=== PATIENT | female | born 1985 | race Caucasian/White ===

== ENCOUNTER 2017-11-22 07:32 | Emergency (ER) | payer MEDICAID ==
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
[2017-11-22 07:57] LABS: PLATELET COUNT, AUTOMATED 156 K/uL (150-450)
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
[2017-11-22] MEDS ORDERED: OXYC10TA67 PO (08:34)
[2017-11-22] MEDS ORDERED: MAGN296S6 PO (08:36)
--- NOTE | 2017-11-22 08:58 | RADIOLOGY IMAGING REPORT ---
FACILITY: [facility] [place]IENT NAME: Che Gonsalez : 1985 MR: [id number] V: [id number] EXAM DATE: ORDERING PHYSICIAN: BLESSING JUNIOR TECHNOLOGIST: Location: [facility] - [place] Patient: Che Gonsalez : 1985 Visit/Account:[id number] Date of Sevice: 11/22/2017 Three-view sacrum and coccyx Indication: Trauma Comparison: Pelvis from today Findings: SI joints are symmetric. Hips are symmetric. Frontal images of the sacrum and coccyx are unremarkable . Lateral view demonstrates a minimally displaced, obliquely oriented coccygeal fracture through the superior coccyx with 1.5 cm anterior displacement. IMPRESSION: 1. Obliquely oriented, minimally displaced superior coccygeal fracture. Report Dictated By: Speedy Trejo MD at 11/22/2017 8:52 AM Report E-Signed By: Speedy Trejo MD at 11/22/2017 8:53 AM WSN:[id number]
[2017-11-22 09:00] VITALS: BP 115/68
[2017-11-22] MEDS ORDERED: EMS NS 0.9%(*) 1000 ML BAG 1,000 ML IV ONE (11:35)
== END 2017-11-22 08:57 | disposition home or self-care (01) ==
LOC: ER 07:35
DX: S32.2XXA Fracture of coccyx, initial encounter for closed fracture (principal); V68.6XXA Passenger in heavy transport vehicle injured in noncollision transport accident in traffic accident, initial encounter
CPT/HCPCS: 36415; 72170; 72220; 82310; 82374; 82435; 82565; 82947; 84132; 84295; 84520; 84703; 85025; 96360; 99284

== ENCOUNTER → 2017-11-22 | Outpatient (CLI) | payer MEDICAID ==
[~2017-11-22] MED LIST: MAGN296S6 PO; OXYC10TA67 PO
== END ==
LOC: AMB 06:22
PROVIDERS: ATTEND Nurse Practitioner
DX: M54.5 Low back pain (principal); V69.88XA Occupant (driver) (passenger) of heavy transport vehicle injured in other specified transport accidents, initial encounter; Y92.411 Interstate highway as the place of occurrence of the external cause
CPT/HCPCS: A0425; A0427